=== PATIENT | male | born 1950 | race Caucasian/White ===

== ENCOUNTER 2019-03-31 14:44 | Emergency (ER) | payer OTHER, MEDICARE ==
[2019-03-31] MEDS ORDERED: KETOROLAC TROMETHAMINE 60 MG/2 ML SDV IM ONE (16:13)
--- NOTE | 2019-03-31 16:15 | ER Document Report ---
ED Medical Screen (RME) - General Chief Complaint: Hip Pain Stated Complaint: HIP PAIN Time Seen by Provider: 03/31/19 16:12 Mode of Arrival: Wheelchair Information source: Patient Notes: 68-year-old male presented to ED for left hip pain. He has been [facility] and was given anti-inflammatories lidocaine gel and another medicine he is not sure what I was given an x-ray. [facility] He came [facility] but the doctor was not there. He states he had burning and pain since he got the shot at the [facility] on the first visit. He states he does not have another visit until next week sometime and he cannot stand this pain anymore. He states that the nurse told him on Friday that he had a "bad back" and otherwise did not give him in the information concern is his x-rays. He states he went to an urgent care and they stated that their x-ray machine was out and that he would need to come to the emergency room for treatment. Patient has a history of high blood pressure cholesterol diabetes arthritis and multiple broken bones. He states he is run out of his anti-inflammatory and lidocaine gel. I have greeted and performed a rapid initial assessment of this patient. A comprehensive ED assessment and evaluation of the patient, analysis of test results and completion of medical decision making process will be conducted by an additional ED providers. Dictation of this chart was performed using voice recognition software; therefore, there may be some unintended grammatical errors. TRAVEL OUTSIDE OF THE [place] IN LAST 30 DAYS: No - Related Data Allergies/Adverse Reactions: No Known Allergies Allergy (Verified 03/31/19 16:12) Past Medical History - Social History Frequency of alcohol use: None Drug Abuse: None - Past Medical History Cardiac Medical History: Reports: Hx Hypercholesterolemia, Hx Hypertension Endocrine Medical History: Reports: Hx Diabetes Mellitus Type 2 Renal/ Medical History: Denies: Hx Peritoneal Dialysis Musculoskeltal Medical History: Reports Hx Arthritis Past Surgical History: Reports: Hx Orthopedic Surgery - b/l legs, neck, back Physical Exam - Vital signs Vitals: Temp Pulse Resp BP Pulse Ox 98.1 F 76 18 154/84 H 96 03/31/19 15:01 03/31/19 15:01 03/31/19 15:01 03/31/19 15:01 03/31/19 15:01 Course - Vital Signs Vital signs: Temp Pulse Resp BP Pulse Ox 98.1 F 76 18 154/84 H 96 03/31/19 15:01 03/31/19 15:01 03/31/19 15:01 03/31/19 15:01 03/31/19 15:01
--- NOTE | 2019-03-31 16:54 | RADIOLOGY REPORT (SQ) ---
EXAM DESCRIPTION: HIP LEFT AP/LATERAL COMPLETED DATE/TIME: 03/31/2019 4:41 pm REASON FOR STUDY: Increasing pain left hip buttocks COMPARISON: None. NUMBER OF VIEWS: Two views. TECHNIQUE: AP pelvis and additional frog-leg view of the left hip. LIMITATIONS: None. FINDINGS: Lumbar spondylosis. Degenerative changes at the SI joints. No acute fracture or bony abn ormality. Surgical clips right lower quadrant. IMPRESSION: Lumbar spondylosis. Degenerative changes of the SI joints. Otherwise normal pelvis lef t hip TECHNICAL DOCUMENTATION: JOB ID: [id number] [employer]- All Rights Reserved Reading location - IP/workstation name: [email or web address]
--- NOTE | 2019-03-31 16:56 | RADIOLOGY REPORT (SQ) ---
EXAM DESCRIPTION: L SPINE WHOLE COMPLETED DATE/TIME: 03/31/2019 4:41 pm REASON FOR STUDY: Increasing pain left hip buttocks COMPARISON: None. NUMBER OF VIEWS: Five views including obliques. TECHNIQUE: AP, lateral, oblique, and sacral radiographic images acquired of the lumbar spine. LIMITATIONS: None. FINDINGS: MINERALIZATION: Normal. SEGMENTATION: 5 [id number] lumbar vertebral bodies. No transitional anatomy. ALIGNMENT: Straightening of the normal lumbar lordosis. Serpiginous thoracolumbar curvature. VERTEBRAE: Mild anterior wedging of the T11, likely physiologic. No definite compression fracture. Multilevel osteophytosis with bulky right anterior osteophytes at L1-2. DISCS: Multilevel degenerative disc disease with disc height loss throughout the lumbar spine. POSTERIOR ELEMENTS: No evidence of fracture. No definite pars defects. Lower lumbar facet arthropat hy. HARDWARE: Surgical clips overlie right retroperitoneum PARASPINAL SOFT TISSUES: Normal. PELVIS: Intact as visualized. No fractures or worrisome bone lesions. SI joints intact. OTHER: No other significant finding. IMPRESSION: 1. No definite acute bony abnormality. 2. Multilevel degenerative disc disease and lower lumbar facet arthropathy TECHNICAL DOCUMENTATION: JOB ID: [id number] [employer]- All Rights Reserved Reading location - IP/workstation name: [email or web address]
[2019-03-31 22:26] VITALS: BP 172/94
[2019-03-31] MEDS ORDERED: LIDOCAINE 5% (700 MG) TRANSDERMAL ADH..PATCH TP ONE (23:53)
[2019-03-31] MEDS ORDERED: ACETAMINOPHEN 325 MG TABLET PO ONE (23:53)
--- NOTE | 2019-03-31 23:53 | ER Document Report ---
ED General - General Chief Complaint: Hip Pain Stated Complaint: HIP PAIN Time Seen by Provider: 03/31/19 16:12 Mode of Arrival: Wheelchair Notes: 68-year-old male with chronic lower back pain and diabetes presents to ED for left hip pain. He has been seen [facility] and was given anti-inflammatories, lidocaine gel, and another medicine but he is not sure the name of. He was to follow-up with the [facility] on Friday but the pain got so severe and he can only take about 4 steps at a time without stopping so he decided to seek treatment at the [facility] today. There is no physician presence of the nurse sent him to the emergency department. He states he does not have another visit until next week sometime and he cannot stand this pain anymore. He states he went to an urgent care and they stated that their x-ray machine was out and that he would need to come to the emergency room for treatment. He denies fevers or chills, urinary retention, saddle paresthesia, IV drug use. TRAVEL OUTSIDE OF THE [place] IN LAST 30 DAYS: No - Related Data Allergies/Adverse Reactions: No Known Allergies Allergy (Verified 03/31/19 16:12) Past Medical History - General Information source: Patient - Social History Smoking Status: Never Smoker Frequency of alcohol use: None Drug Abuse: None Family History: None Patient has suicidal ideation: No Patient has homicidal ideation: No - Past Medical History Cardiac Medical History: Reports: Hx Hypercholesterolemia, Hx Hypertension Endocrine Medical History: Reports: Hx Diabetes Mellitus Type 2 Renal/ Medical History: Denies: Hx Peritoneal Dialysis Musculoskeletal Medical History: Reports Hx Arthritis Past Surgical History: Reports: Hx Orthopedic Surgery - b/l legs, neck, back Review of Systems - Review of Systems Constitutional: See HPI EENT: No symptoms reported Cardiovascular: No symptoms reported Respiratory: No symptoms reported Gastrointestinal: No symptoms reported Genitourinary: No symptoms reported Male Genitourinary: No symptoms reported Musculoskeletal: See HPI Skin: No symptoms reported Hematologic/Lymphatic: No symptoms reported Neurological/Psychological: See HPI Physical Exam - Vital signs Vitals: Temp Pulse Resp BP Pulse Ox 98.1 F 76 18 154/84 H 96 03/31/19 15:01 03/31/19 15:01 03/31/19 15:01 03/31/19 15:01 03/31/19 15:01 - Notes Notes: PHYSICAL EXAMINATION: Reviewed vital signs and charting by RN GENERAL: Well-appearing, well-nourished and in no acute distress. NECK: Normal range of motion, supple without lymphadenopathy. LUNGS: Breath sounds present, equal, and clear to auscultation bilaterally. No wheezes, rales, or rhonchi. HEART: Regular rate and rhythm without murmurs, rubs, or gallops. 2+ peripheral pulses. Normal capillary refill. ABDOMEN: Soft, nontender, nondistended. Normoactive bowel sounds. No guarding, no rebound. No masses appreciated. BACK: Normal contour, no midline tenderness. Rectal exam deferred. EXTREMITIES: Normal range of motion, no pitting or edema. No cyanosis. SKIN: Warm, dry, normal turgor, no rashes or lesions noted. Course - Re-evaluation Re-evalutation: 03/31/19 23:52 Presentation of a well appearing patient complaining of acute on chronic back pain. No rapid progression of symptoms, systemic symptoms including fevers, chills, weight loss, history of recent bacterial infection, bilateral symptoms, numbness, weakness, difficulty walking, urinary retention or bowel incontinence, personal history of cancer, immunosuppression, diabetes, known AAA, or history of IV drug use. Exam is without point tenderness over vertebral bodies, pulsatile abdominal mass, and patient has symmetric and intact lower extremity strength, sensation, and reflexes without clonus. 2+ symmetric medial malleolar and dorsalis pedis pulses Based on history and physical, I have a very low suspicion of a concerning etiology of pain including epidural compression syndrome, spinal infection, transverse myelitis, malignancy, abdominal aortic aneurysm, renal colic, acute lower extremity claudication, neurogenic claudication, ankylosing spondylitis, or other intra-abdominal process. Due to absence of concerning risk factors in history and physical as well as absence of rapidly progressive, severe, or bilateral symptoms, will defer advanced imaging at this point. X-rays were unremarkable other than degenerative changes. - Vital Signs Vital signs: Temp Pulse Resp BP Pulse Ox 97.3 F 55 L 16 172/94 H 100 03/31/19 22:22 03/31/19 22:22 03/31/19 22:22 03/31/19 22:22 03/31/19 22:22 Discharge - Discharge Clinical Impression: Lower back pain Qualifiers: Chronicity: chronic Back pain laterality: left Sciatica presence: with sciatica Sciatica laterality: sciatica of left side Qualified Code(s): M54.42 - Lumbago with sciatica, left side Condition: Good Disposition: HOME, SELF-CARE Additional Instructions: You have been seen in the Emergency Department (ED) today for back pain. Your workup and exam have not shown any acute abnormalities and you are likely suffering from muscle strain or possible problems with your discs, but there is no treatment that will fix your symptoms at this time. Please take ibuprofen 600 mg every 6 hours and/or Tylenol milligrams every 6 hours for pain and inflammation. You should also purchase a local lidocaine cream such as "aspercreme with lidocaine" and use per bottle instructions to the affected area. Apply heat to the area as often as you are able. Continue to keep active and avoid prolonged periods of bed rest. Please follow up with your doctor as soon as possible regarding today's ED visit and your back pain. Return to the ED for worsening back pain, fever, weakness or numbness of either leg, or if you develop either (1) an inability to urinate or have bowel movements, or (2) loss of your ability to control your bathroom functions (if you start having "accidents"), or if you develop other new symptoms that concern you.concern you.
== END 2019-04-01 | disposition home or self-care (01) ==
LOC: ER 14:44
DX: M51.16 Intervertebral disc disorders with radiculopathy, lumbar region (principal); I10 Essential (primary) hypertension; E11.9 Type 2 diabetes mellitus without complications
CPT/HCPCS: 99283; 96372; 73502; 72110; J1885